=== PATIENT | female | born 1945 | race African-American/Black ===

== ENCOUNTER 2019-04-11 13:04 | Emergency (ER) | payer OTHER ==
[2019-04-11 13:11] VITALS: TEMP 97.9; BMI 22.2
[2019-04-11] MEDS ORDERED: ACETAMINOPHEN 1000 MG/100 ML VIAL (NON FORMULARY) IVPB ONE (14:43)
--- NOTE | 2019-04-11 14:46 | PDOC ---
History of Present Illness - General Chief Complaint: Blood Pressure Problem Stated Complaint: HEADACHE/BP PROBLEM Time Seen by Provider: 04/11/19 14:31 - History of Present Illness Initial Comments: 04/11/19 14:43 73 F with h/o HTN, HLD presenting to ED with headache x 1 week. Pt reports R temporal pain that is constant. Denies N/V. Denies neck pain. Denies F/C. Denies weakness/numbness in any extremity. Pt also concerned about her BP, as it has been fluctuating from 130s to 150s systolic. Denies any CP/SOB. Denies leg swelling. Past History - Past Medical History Allergies/Adverse Reactions: Allergies Allergy/AdvReac Type Severity Reaction Status Date / Time spironolactone Allergy Intermediate Itching Unverified 10/30/14 11:45 [From Aldactone] DARSHAN Inhibitors AdvReac Severe Severe Lip Unverified 01/17/14 10:11 and tongue swelling ARB-Angiotensin Receptor AdvReac Severe Severe Lip Unverified 01/17/14 10:12 Antagonist Swelling gabapentin AdvReac Intermediate Chest Unverified 11/30/14 13:10 Tightness and pain methyldopa [From Aldomet] AdvReac Intermediate Chest Unverified 11/30/14 13:10 Tightness methyldopate HCl AdvReac Intermediate Chest Unverified 11/30/14 13:10 [From Aldomet] Tightness quinidine AdvReac Intermediate Itching/Diz Unverified 08/09/14 13:00 ziness. Home Medications: Ambulatory Orders Cholecalciferol (Vitamin D3) [Vitamin D3] 1,000 unit PO DAILY tablet 01/16/14 Vitamin B12 1,000 mcg PO DAILY 01/16/14 Hydrochlorothiazide 12.5 mg PO tablet 11/05/15 Metoprolol Succinate 25 mg PO HS 09/30/16 COPD: No HTN: Yes Hypercholesterolemia: Yes - Surgical History Cardiac Surgery: No Gastric Stapling: No - Immunization History Immunization Up to Date: No - Suicide/Smoking/Psychosocial Hx Smoking History: Never smoked Have you smoked in the past 12 months: No Information on smoking cessation initiated: No Hx Alcohol Use: No Drug/Substance Use Hx: No Review of Systems - Review of Systems Comments:: 04/11/19 14:45 "GENERAL/CONSTITUTIONAL: No fever or chills. No weakness. HEAD, EYES, EARS, NOSE AND THROAT: No change in vision. No ear pain or discharge. No sore throat. CARDIOVASCULAR: No chest pain, no shortness of breath, no loss of consciousness RESPIRATORY: No cough, wheezing, or hemoptysis. GASTROINTESTINAL: No nausea, vomiting, diarrhea or constipation. GENITOURINARY: No dysuria, frequency, or change in urination. MUSCULOSKELETAL: No joint or muscle swelling or pain. No neck or back pain. SKIN: No rash NEUROLOGIC: + headache, No vertigo, no change in strength/sensation. ENDOCRINE: No increased thirst. No abnormal weight change. HEMATOLOGIC/LYMPHATIC: No anemia, easy bleeding, or history of blood clots. ALLERGIC/IMMUNOLOGIC: No hives or skin allergy."\\ *Physical Exam - Vital Signs Last Vital Signs Temp Pulse Resp BP Pulse Ox 97.9 F 63 16 133/75 98 04/11/19 13:08 04/11/19 13:08 04/11/19 13:08 04/11/19 13:08 04/11/19 13:08 - Physical Exam Comments: 04/11/19 14:45 "GENERAL: Awake, alert, and fully oriented, in no acute distress. HEAD: No signs of trauma EYES: PERRLA, EOMI, sclera anicteric, conjunctiva clear ENT: Auricles normal inspection, hearing grossly normal, nares patent, oropharynx clear without exudates. Moist mucosa NECK: Nontender, no stepoffs, Normal ROM, supple, no lymphadenopathy, JVD, or masses LUNGS: Breath sounds equal, clear to auscultation bilaterally. No wheezes, and no crackles HEART: Regular rate and rhythm, normal S1 and S2, no murmurs, rubs or gallops ABDOMEN: Soft, nontender, normoactive bowel sounds. No guarding, no rebound. No masses EXTREMITIES: Normal range of motion, no edema. No clubbing or cyanosis. No cords, erythema, or tenderness NEUROLOGICAL: + tenderness over R protestant, Cranial nerves II through XII intact. 5/5 strength and sensation in all extremities, Normal speech, normal gait, normal cerebellar function SKIN: Warm, Dry, normal turgor, no rashes or lesions noted. ED Treatment Course - LABORATORY CBC & Chemistry Diagram: 04/11/19 15:15 04/11/19 15:15 - RADIOLOGY Radiology Studies Ordered: Category Date Time Status HEAD CT WITHOUT CONTRAST [CT] Stat CT Scan 04/11/19 14:41 Ordered Medical Decision Making - Medical Decision Making 04/11/19 14:45 73 F with R temporal headache. Tender to palpation over temporal artery. Concerning for possible GCA. Visual acuity normal both eyes. Pt with no neuro deficits on exam. Low suspicion for intracranial pathology. - Labs, ESR, CRP - CT head - Tylenol 04/11/19 15:[address] head negative Case discussed with Dr. Pate, who recommends outpt f/u. Will defer steroids at this time given normal ESR/CRP Pt reassessed - headache completely resolved with tylenol. Pt is well appearing, with normal vitals. Clinically stable for DC at this time. I discussed the physical exam findings, ancillary test results and final diagnoses with the patient. I answered all of the patient's questions. The patient was satisfied with the care received and felt comfortable with the discharge plan and treatment plan. The patient agrees to follow up with the primary care physician within 24-72 hours. *DC/Admit/Observation/Transfer Diagnosis at time of Disposition: Headache - Discharge Dispostion Disposition: HOME Condition at time of disposition: Stable - Referrals Referrals: Landen Collazo MD [Primary Care Provider] - Elbert Pate MD [Staff Physician] - Mac Garcia MD [Staff Physician] - - Patient Instructions Printed Discharge Instructions: DI for Headache Additional Instructions: Your bloodwork and CT scan today were normal. However, you should still follow up with a neurologist for further evaluation of your headaches. Call Dr. Garcia to make an appointment within 1 week. You should also follow up with a sailing instructor for further evaluation. Call Dr. Pate's office to make an appointment. If you experience any blurry vision, severe headaches, fevers, nausea/vomiting, or any other concerning symptoms, return to the ER immediately. - Post Discharge Activity - Attestations Physician Attestion: 04/11/19 17:17 I, Dr. Min Oakes MD, attest that this document has been prepared under my direction and personally reviewed by me in its entirety. I further attest, that it accurately reflects all work, treatment, procedures and medical decision -making performed by me.
[2019-04-11] MEDS ORDERED: ACETAMINOPHEN INJECTION 100 ML IVPB ONE (15:01)
[2019-04-11 15:27] LABS: BASO % 1.1 % (0-2.0); EOS % 1.6 % (0-4.5); HEMATOCRIT 38.9 % (32.4-45.2); HEMOGLOBIN 13.1 GM/dL (10.7-15.3); LYMPH % 28.4 % (8-40); MCH 32.2 pg (25.7-33.7); MCHC 33.7 g/dl (32.0-36.0); MEAN CELL VOLUME 95.5 fl (80-96); MEAN PLT VOLUME 7.4 fl (7.5-11.1); MONO % 6.3 % (3.8-10.2); NEUT % 62.6 % (42.8-82.8); PLATELET COUNT 292 K/MM3 (134-434); RBC 4.08 M/mm3 (3.60-5.2)
[2019-04-11 16:02] LABS: ALBUMIN 3.9 g/dl (3.4-5.0); BILIRUBIN,TOTAL 0.5 mg/dL (0.2-1); BLOOD UREA NITROGEN 13.8 mg/dL (7-18); CALCIUM 9.9 mg/dL (8.5-10.1); CREATININE 0.7 mg/dL (0.55-1.3); POTASSIUM 4.6 mmol/L (3.5-5.1); TOT PROT 7.5 g/dl (6.4-8.2)
[2019-04-11 17:56] VITALS: BP 134/86; PULSE 55
--- NOTE | 2019-04-12 13:07 | EKG ---
Test Reason : Blood Pressure : / mmHG Vent. Rate : 055 BPM Atrial Rate : 055 BPM P-R Int : 172 ms QRS Dur : 066 ms QT Int : 430 ms P-R-T Axes : 033 -07 018 degrees QTc Int : 411 ms POOR DATA QUALITY, INTERPRETATION MAY BE ADVERSELY AFFECTED SINUS BRADYCARDIA MINIMAL VOLTAGE CRITERIA FOR LVH, MAY BE NORMAL VARIANT BORDERLINE ECG NO PREVIOUS ECGS AVAILABLE Confirmed by MD Maria E, Gm ([id number]) on 04/12/2019 1:07:04 PM Referred By: Confirmed By:Gm Sanderson MD
== END 2019-04-11 17:56 | disposition home or self-care (01) ==
LOC: JER 13:04
PROC: 3E033NZ Introduction of Analgesics, Hypnotics, Sedatives into Peripheral Vein, Percutaneous Approach (ICD-10-PCS; principal; 2019-04-11)
PROC: 4A07X0Z Measurement of Visual Acuity, External Approach (ICD-10-PCS; 2019-04-11)
DX: R51 Headache (principal); I10 Essential (primary) hypertension; E78.00 Pure hypercholesterolemia, unspecified
CPT/HCPCS: 36415; 70450-TC; 80053; 85025; 85651; 86140; 93005; 93010; 96374; 99173; 99282-25; 99283-25; J0131

== ENCOUNTER 2022-07-10 09:52 | Emergency (ER) | payer OTHER ==
[2022-07-10 10:03] VITALS: BP 139/68; PULSE 98; RESP 18; TEMP 97.8; BMI 22.2
[2022-07-10] MEDS ORDERED: ACETAMINOPHEN 500 MG TABLET (FP) PO ONE (12:24)
[2022-07-10] MEDS ORDERED: ACETAMINOPHEN 325 MG TABLET (FP) ONE (12:25)
== END 2022-07-10 15:33 | disposition home or self-care (01) ==
LOC: JERFT 09:52 → JER 09:52 → JERFT 15:33
DX: M71.21 Synovial cyst of popliteal space [Baker], right knee (principal)
CPT/HCPCS: 73562-TC-RT-FY; 93971-TC; 99284-25